=== PATIENT | male | born 2005 | race Caucasian/White ===

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

== ENCOUNTER 2024-03-09 14:17 | Emergency (ER) | payer SELFPAY ==
[2024-03-09] MEDS ORDERED: Ketorolac Tromethamine 30 MG (1 mL) VIAL ONE (14:33)
== END 2024-03-09 14:56 | disposition home or self-care (01) ==
LOC: ERS 14:17
DX: M25.551 Pain in right hip (principal); W01.0XXA Fall on same level from slipping, tripping and stumbling without subsequent striking against object, initial encounter; Y93.02 Activity, running
CPT/HCPCS: 96372; 99283; J1885

== ENCOUNTER 2024-05-02 17:10 | Emergency (ER) | payer MEDICAID, OTHER, SELFPAY ==
[2024-05-02] MEDS ORDERED: Ibuprofen 800 MG TAB ONE (17:37)
[2024-05-02] MEDS ORDERED: Acetaminophen 325 MG TAB ONE (18:54)
[2024-05-02] MEDS ORDERED: HYDROcodone/Acetaminophen 5/325 mg Tablet ONE (18:55)
== END 2024-05-02 20:02 | disposition home or self-care (01) ==
LOC: ERS 17:10
DX: S70.11XA Contusion of right thigh, initial encounter (principal); W01.10XA Fall on same level from slipping, tripping and stumbling with subsequent striking against unspecified object, initial encounter
CPT/HCPCS: 99283